=== PATIENT | male | born 1985 | race Caucasian/White ===

== ENCOUNTER 2019-02-06 22:43 | Emergency (ER) | payer BC ==
[~2019-02-06] VITALS: Ht 190.5 cm; Wt 145.5 kg
[2019-02-06 22:56] VITALS: Ht 190.5 cm; Wt 145.5 kg
[2019-02-06] MEDS ORDERED: TOUJEO SOL300 UNIT/1 SC (22:57)
[2019-02-07] MEDS ORDERED: IBUPROFEN800 MG PO (02:33)
[2019-02-07] MEDS ORDERED: KEFLEX500 MG PO (02:33)
[2019-02-07] MEDS ORDERED: ACETAMINOPHEN500 M1 PO (02:33)
[2019-02-07] MEDS ORDERED: CYCLOBENZAPRINE10 MG PO (02:33)
[2019-02-07 03:16] VITALS: BP 130/77
== END 2019-02-07 03:16 | disposition home or self-care (01) ==
LOC: D.ER 22:43
DX: S02.5XXA Fracture of tooth (traumatic), initial encounter for closed fracture (principal); X58.XXXA Exposure to other specified factors, initial encounter; Y93.89 Activity, other specified; Y92.89 Other specified places as the place of occurrence of the external cause; M26.601 Right temporomandibular joint disorder, unspecified